=== PATIENT | female | born 1955 | race Caucasian/White ===

== ENCOUNTER → 2016-08-18 | Outpatient (CLI) | payer MEDICARE ==
[~2016-08-18] MED LIST: BIOTIN1 MG PO; FISH OIL 10001000 MG PO; FISH OIL 500MG500 MG PO; LIBRAX 5 MG-2.51 CAP PO; LYRICA200 M1 PO; LYRICA50 MG PO; MOTRIN800 MG PO; OYSTER CALCIUM500 M1 PO; PAXIL40 MG PO; TYLENOL W/CODEI1 TA7 PO; VICODIN 5/500 505 MG PO; VOLTAREN25 MG PO; Vicodin 5/500 505 MG PO; ZOCOR20 MG PO
--- NOTE | ~2016-08-18 | SLPIE ---
[place], [place] AIRCRAFT SALES REPRESENTATIVE INITIAL EVALUATION NAME: JACINTO KNIGHT UNIT #: [id number] ROOM: DOCTOR: Cedrick Ruiz Speech Language Pathology Initial Evaluation Page 1 1 of Patient Name: JACINTO KNGIHT Date: 08/25/2016 04:06 PM : 1955 SOC Date: 08/18/2016 Provider: [facility] Provider #: [id number] Treating Clinician: Rhonda Mcgraw CCC=AIRCRAFT SALES REPRESENTATIVE Referring Physician: Cedrick Ruiz Patient Information Address: [address] [place] [address] Physician: Cedrick Ruiz Physician #: City, [facility], Zip: [place] [address] Occupation: Unknown # of Approved Visits: 0 Gender: Female [employer] Dean: ALBERTO KNIGHT Medicare #: [id number] Rehabilitation Information / History Onset Date Description Code Primary Diagnosis: 08/17/2016 DYS.PHAGIA DYSPHAGIA Subjective Comments: Initial evaluation created to initiate the electronic medical record. Please see [employer] for details. Clinical Findings Functional Goals Functional Limitation Reporting Swallowing G8996 - Swallowing functional limitation, current status at therapy episode outset and at reporting intervals Current Status: CJ - At least 20 percent but less than 40 percent impaired, limited or restricted G8997 - Swallowing functional limitation, projected goal status, at therapy episode outset, at reporting intervals, and at discharge or to end reporting Goal Status: CJ - At least 20 percent but less than 40 percent impaired, limited or restricted G8998 - Swallowing functional limitation, discharge status, at discharge from therapy or to end reporting Discharge Status: CJ - At least 20 percent but less than 40 percent impaired, limited or restricted Interventions (CPT Code) MOTION FLUOROSCOPY/SWALLOW 52487 08/25/2016 4:07:46 PM Rhonda Mcgraw CCC=AIRCRAFT SALES REPRESENTATIVE Date/Time [place], [place] AIRCRAFT SALES REPRESENTATIVE INITIAL EVALUATION NAME: JACINTO KNIGHT UNIT #: [id number] ROOM: DOCTOR: Cedrick Ruiz [facility] License #: [id number] CM:CARMEN 10 10 [facility]
--- NOTE | ~2016-08-18 | SLPPN ---
[place], [place] SENIOR DIRECTOR MARKETING PROGRESS NOTE NAME: JACINTO KNIGHT UNIT #: [id number] ROOM: DOCTOR: Cedrick Ruiz Speech Language Pathology Treatment Note Page 1 of 1 Patient Name: JACINTO KNIGHT Date: 08/25/2016 04:07 PM : 1955 SOC Date: 08/18/2016 Provider: [facility] Provider #: [id number] Treating Clinician: Rhonda Mcgraw CCC=SENIOR DIRECTOR MARKETING Referring Physician: Cedrick Ruiz Onset Date Code Description Primary Diagnosis: 08/17/2016 DYS.PHAGIA DYSPHAGIA Time In: 08:55 AM Time Out: 09:50 AM SENIOR DIRECTOR MARKETING Interventions and CPT Codes Consisted of: CPT Code Modifiers Minutes Units MOTION FLUOROSCOPY/SWALLOW 56214 55 1 Total Minutes: 55 Total Timed Minutes: 0 Total Untimed Minutes: 55 Total Units: 1 Total Timed Units: 0 Total Untimed Units: 1 08/25/2016 4:08:31 PM Rhonda Mcgraw CCC=SENIOR DIRECTOR MARKETING Date/Time State License #: [id number] CM:SLPPN 10 [facility]
--- NOTE | ~2016-08-18 | SLPPOC ---
[place], [place] OPERATOR GROUND BASED AIR DEFENCE PLAN OF CARE NAME: JACINTO KNIGHT UNIT #: [id number] ROOM: DOCTOR: Cedrick Ruiz Speech Language Pathology Plan of Care Page 1 1 (Initial Evaluation) of Patient Name: JACINTO KNIGHT Date: 08/25/2016 04:06 PM : 1955 SOC Date: 08/18/2016 Provider: [facility] Provider #: [id number] Treating Clinician: Rhonda Mcgraw CCC=OPERATOR GROUND [employer]ED [employer] DEFENCE Referring Physician: Cedrick Ruiz Medicare #: [id number] Visits From SOC: 1 Onset Date Description Code Primary Diagnosis: 08/17/2016 DYS.PHAGIA DYSPHAGIA Subjective Comments: Initial evaluation created to initiate the electronic medical record. Please see [employer] for details. Initial Level Goals Functional Limitation Reporting Swallowing G8996 - Swallowing functional limitation, current status at therapy episode outset and at reporting intervals Current Status: CJ - At least 20 percent but less than 40 percent impaired, limited or restricted G8997 - Swallowing functional limitation, projected goal status, at therapy episode outset, at reporting intervals, and at discharge or to end reporting Goal Status: CJ - At least 20 percent but less than 40 percent impaired, limited or restricted G8998 - Swallowing functional limitation, discharge status, at discharge from therapy or to end reporting Discharge Status: CJ - At least 20 percent but less than 40 percent impaired, limited or restricted Interventions (CPT Code) MOTION FLUOROSCOPY/SWALLOW 42552 08/25/2016 4:07:46 PM Cedrick Ruiz Date/Time Rhonda Mcgraw CCC=OPERATOR GROUND [employer]ED AIR DEFENCE Date I certify the need for these services furnished under this plan of treatment while under my care. State License #: [id number] CM:SLPPOC 10 10 [facility]
== END | disposition home or self-care (01) ==
LOC: RAD/SH 02:30
DX: R13.10 Dysphagia, unspecified (principal)

== ENCOUNTER → 2016-08-25 | Outpatient (CLI) | payer MEDICARE ==
--- NOTE | ~2016-08-25 | PROC NOTE ---
[place], [place] PROCEDURE NOTE NAME: JACINTO KNIGHT UNIT #: [id number] ROOM: DOCTOR: JUAN PABLO GARCIA BIRTHDATE: [birth year] DOS: MODIFIED BARIUM SWALLOW BACKGROUND HISTORY/MEDICAL HISTORY: The patient is a pleasant female, date of 1955. She did report her medical history with some details being inconsistent, but they were very little inconsistent details. She had some difficulty with specifics and time line, was able to give general time lines. She was able to follow commands, follow conversation. Her expressive and receptive language skills were all within functional limits and she was oriented to time and place. The patient reports she has a history of silent aspiration on thin liquids including use of a chin tucks with 2 modified barium swallows in the past. She reports she is currently on nectar liquids and regular foods and she is being seen by a speech pathologist for swallowing therapy in a intermediate where she is receptive rehab. She reports she is doing some lingual exercises and oral bolus manipulation exercises. The patient has a PEG tube; however, she reports she is not using it. All her nutrition and hydration are currently received via p.o. intake. The patient reports recent hospitalization without specific details in the last 60 days for bacterial meningitis. She also reports heart attack and stroke during that hospitalization, details are unknown at this time. The patient reports she is post-intubation from the diagnosis of meningitis. The patient also indicates 2 strokes, but was unable to give details or year or specific dates. The patient denies chronic pneumonia. She reports she is eating well and not having difficulty in her current diet. She reports a weight loss due to the bacterial meningitis, but she reports she is consuming enough food and liquid to be gaining the weight. METHODS AND MATERIALS: The patient was seated in a wheelchair. She was able to self feed. She was viewed in the lateral plane. The study was done in completion with radiologist, Dr. Ayala. ORAL PHASE: The patient demonstrated adequate chewing and oral awareness to clear sulci from all oral residue. The patient demonstrated slight slow transit of pudding consistency due to mild reduced lingual strength, bolus propulsion suspected due to tongue base weakness. PHARYNGEAL PHASE: The patient demonstrated deep penetration on single and sequential sips of thin liquid. She did not penetrate on any other consistency administered. The patient did not respond to penetration. She was unaware, she did not throat clear or cough; however, that deep penetration appeared to clear the laryngeal vestibule, but it was slow to clear. A chin tuck was trialled to reduce penetration; however, the patient was physically unable to tuck her chin to her chest to become effective to reduce the penetration and it occurred with the thin liquid exactly as it did with the thin liquid without the chin tuck, it was deep but cleared and residue was not noted in the laryngeal vestibule. Pharyngeal residue mild in the vallecula and the piriform; however, with sequential swallows, it appeared to be clearing. RECOMMENDATIONS AND IMPRESSIONS: Based on the above, the patient demonstrates mild reduced tongue base strength to propel a bolus with mild propulsion of [place], [place] PROCEDURE NOTE NAME: JACINTO KNIGHT UNIT #: [id number] ROOM: DOCTOR: JUAN PABLO GARCIA BIRTHDATE: [birth year] pudding; however, she tolerated nectar and solid without difficulty. There was a deeper penetration and a moderate amount, but it cleared into the laryngeal vestibule on thin liquids and the patient was not aware and did not respond with throat clear or cough to this penetration. Recommendations are to continue on a nectar thick liquids and regular foods as she reports she has been tolerating with speech language pathology therapy at her facility to continue as she reports she is currently in speech therapy and receiving dysphagia therapy with the therapist providing therapeutic or trials of thin liquid in small amount via teaspoon or small sips via cup as she was given thin liquid initially by teaspoon and she did not demonstrate penetration on that small amount. The speech pathologist should have her assess closely for clinical signs and symptoms of aspiration and consider teaching her expectoration maneuvers or super-supraglottic swallow during thin liquids to increase airway protection and reduce risk of aspiration from the deep penetration that occurred. Thank you for this referral. JUAN PABLO GARCIA CM:PROCNOTE:PROCEDURE NOTE [id number] JUAN PABLO GARCIA
== END | disposition home or self-care (01) ==
LOC: RAD/SH 02:13
DX: R13.10 Dysphagia, unspecified (principal)

== ENCOUNTER 2017-05-15 20:15 | Emergency (ER) | payer MEDICARE ==
[~2017-05-15] VITALS: Ht 162.5 cm; Wt 63.5 kg
== END 2017-05-15 23:31 | disposition home or self-care (01) ==
LOC: ED 20:15
DX: G43.909 Migraine, unspecified, not intractable, without status migrainosus (principal); L76.22 Postprocedural hemorrhage of skin and subcutaneous tissue following other procedure; I25.2 Old myocardial infarction; Z90.711 Acquired absence of uterus with remaining cervical stump; Z98.890 Other specified postprocedural states; Z79.899 Other long term (current) drug therapy; Z88.5 Allergy status to narcotic agent; Z86.73 Personal history of transient ischemic attack (TIA), and cerebral infarction without residual deficits

== ENCOUNTER → 2018-03-06 | Outpatient (CLI) | payer MEDICARE | END | disposition home or self-care (01) | LOC: CARD 09:10 | DX: I10 Essential (primary) hypertension (principal); I38 Endocarditis, valve unspecified; I42.9 Cardiomyopathy, unspecified ==

== ENCOUNTER → 2021-06-11 | Outpatient (CLI) | payer MEDICARE | END | disposition home or self-care (01) | LOC: RAD 15:45 | PROVIDERS: ATTEND Nurse Practitioner Family | DX: M17.12 Unilateral primary osteoarthritis, left knee (principal) ==

== ENCOUNTER → 2021-08-10 | Outpatient (CLI) | payer MEDICARE | END | disposition home or self-care (01) | LOC: MRI 07-15 11:00 | PROVIDERS: ATTEND Orthopaedic Surgery | DX: M25.462 Effusion, left knee (principal); M17.12 Unilateral primary osteoarthritis, left knee; M23.92 Unspecified internal derangement of left knee; M25.362 Other instability, left knee ==